=== PATIENT | female | born 1955 | race Caucasian/White ===

== ENCOUNTER 2021-08-11 22:01 | Emergency (ER) | payer BC, OTHER ==
[~2021-08-11] VITALS: Ht 160 cm; Wt 65.3 kg
[2021-08-11] MEDS ORDERED: TRAMADOL HCL 50 MG TAB PO ONE (22:30)
[2021-08-11] MEDS ORDERED: TETANUS/DIPHTHERIA TOX ADULT 0.5 ML SYR IM ONE (22:30)
[2021-08-11] MEDS ORDERED: BACITRACIN ZINC 0.9GM TP ONE (22:30)
[2021-08-11] MEDS ORDERED: TRAMADOL HCL 50 MG TAB ONE (22:49)
[2021-08-11] MEDS ORDERED: TETANUS/DIPHTHERIA TOX ADULT 0.5 ML SYR ONE (22:50)
[2021-08-12] MEDS ORDERED: KETOROLAC TROMETHAMINE 30 MG/ML VIAL IM STA (00:47)
[2021-08-12] MEDS ORDERED: IBUPROFEN400 MG PO (00:52)
[2021-08-12] MEDS ORDERED: ULTRAM 50MG50 MG PO (00:52)
[2021-08-12 01:21] VITALS: BP 146/64
== END 2021-08-12 01:21 | disposition home or self-care (01) ==
LOC: FSED 22:29
DX: S00.83XA Contusion of other part of head, initial encounter (principal); S40.012A Contusion of left shoulder, initial encounter; S50.811A Abrasion of right forearm, initial encounter; M25.561 Pain in right knee; W01.0XXA Fall on same level from slipping, tripping and stumbling without subsequent striking against object, initial encounter; Y93.01 Activity, walking, marching and hiking; Y92.480 Sidewalk as the place of occurrence of the external cause; I10 Essential (primary) hypertension; K21.9 Gastro-esophageal reflux disease without esophagitis
CPT/HCPCS: 70450; 70486; 72125; 73030; 73100; 73562; 90471; 90714; 96372 ×2; 99284; J1885

== ENCOUNTER 2022-07-03 22:56 | Emergency (ER) | payer BC ==
[~2022-07-03] VITALS: Ht 160 cm; Wt 65.3 kg
[~2022-07-03 22:56] MED LIST: IBUPROFEN400 MG PO; ULTRAM 50MG50 MG PO
[2022-07-03] MEDS ORDERED: CEFTRIAXONE 1 GM VIAL IM ONE (23:30)
[2022-07-03] MEDS ORDERED: IBUPROFEN 200 MG TAB PO ONE (23:30)
[2022-07-03] MEDS ORDERED: CEFDINIR300 MG PO ×2 (23:40→23:48)
[2022-07-03] MEDS ORDERED: PYRIDIUM100 MG PO ×2 (23:40→23:48)
[2022-07-03] MEDS ORDERED: IBUPROFEN200 MG PO ×2 (23:40→23:48)
== END 2022-07-04 00:30 | disposition home or self-care (01) ==
LOC: FSED 23:15
DX: R30.0 Dysuria (principal); N30.91 Cystitis, unspecified with hematuria; I10 Essential (primary) hypertension; K21.9 Gastro-esophageal reflux disease without esophagitis; M54.50 Low back pain, unspecified; G89.29 Other chronic pain
CPT/HCPCS: 81003; 99282; J0696

== ENCOUNTER 2023-07-15 17:34 | Emergency (ER) | payer BC ==
[~2023-07-15] VITALS: Ht 162.6 cm; Wt 63.5 kg
[~2023-07-15 17:34] MED LIST changes: +CEFDINIR300 MG PO; +IBUPROFEN200 MG PO; +PYRIDIUM100 MG PO
[2023-07-15] MEDS ORDERED: POTASSIUM CHLORIDE 20 MEQ TAB CR PO STA (19:19)
[2023-07-15 19:35] VITALS: BP 157/66; PULSE 71; RESP 18; TEMP 98.8; O2SAT 97
== END 2023-07-15 19:35 | disposition home or self-care (01) ==
LOC: FSED 17:40
DX: R10.30 Lower abdominal pain, unspecified (principal); U07.1 COVID-19; R55 Syncope and collapse; R19.7 Diarrhea, unspecified; I10 Essential (primary) hypertension; K21.9 Gastro-esophageal reflux disease without esophagitis; Z87.19 Personal history of other diseases of the digestive system
CPT/HCPCS: 0223U; 74176; 80048; 80076; 82553; 84484; 85025; 99284; 93005